=== PATIENT | female | born 1975 | race Two or more races ===

== ENCOUNTER 2016-09-03 17:51 | Emergency (ER) | payer SELFPAY ==
[~2016-09-03] VITALS: Ht 167.6 cm; Wt 127.0 kg
[2016-09-03] MEDS ORDERED: HYDROCODONE/APAP 5/325MG TABLET. PO ONE (18:30)
[2016-09-03 19:19] LABS: NEG OBC UR NEG; POS OBC UR POS
[2016-09-03 19:20] LABS: BILIRUBIN,URINE NEGATIVE (NEG); GLUCOSE,URINE NEGATIVE (NEG); NITRITE,URINE NEGATIVE (NEG); PH,URINE 7.5; PROTEIN,URINE NEGATIVE (NEG-TRACE)
[2016-09-03 19:36] LABS: BACTERIA,URINE FEW /HPF (0-FEW); RBC,URINE 0 /HPF (0-2); SQUAMOUS EPITHELIAL CELL,UR OCC /LPF; WBC,URINE OCC /HPF (0-4)
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
[2016-09-03 20:25] VITALS: BP 105/54
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
[2016-09-03] MEDS ORDERED: HYDR-971 PO (20:39)
--- NOTE | 2016-09-04 07:46 | RAD ---
Indication: Abdominal pain. Time of exam 1901 hours. Comparison is made with prior chest from 06/11/2011. FINDINGS: The heart size is normal. The lungs are clear. No pleural effusion or pneumothorax is identified. The pulmonary vascularity is normal. IMPRESSION: No acute abnormality detected.
== END 2016-09-03 20:48 | disposition home or self-care (01) ==
LOC: ER 17:51
DX: R10.32 Left lower quadrant pain (principal); R10.31 Right lower quadrant pain; R10.13 Epigastric pain; F41.9 Anxiety disorder, unspecified; F32.9 Major depressive disorder, single episode, unspecified; E78.00 Pure hypercholesterolemia, unspecified; E66.9 Obesity, unspecified; Z68.42 Body mass index [BMI] 45.0-49.9, adult; Z98.890 Other specified postprocedural states; Z87.442 Personal history of urinary calculi
CPT/HCPCS: 71010; 74176; 81001; 81025; 99285-25

== ENCOUNTER 2017-09-17 13:08 | Emergency (ER) | payer SELFPAY ==
[2017-09-17] MEDS: IV NORMAL SALINE 1000ML BAG 1,000 ML IV ×4 (14:29→16:26)
[2017-09-17] MEDS: ONDANSETRON PF 4 MG/2 ML VIAL. IV ×2 (14:30)
[2017-09-17 14:41] LABS: ADD MAN DIFF? NO
[2017-09-17 14:43] LABS: BASO # 0.1 x10^3/uL (0.0-0.2); BASO % 1 % (0-3); EOS # 0.2 x10^3/uL (0.0-0.7); EOS % 2 % (0-3); HEMATOCRIT 43.9 % (36.0-47.0); HEMOGLOBIN 14.7 g/dL (12.0-15.5); LYMPH # 1.6 x10^3/uL (1.0-4.8); LYMPH % 20 % (24-48); MEAN CORPUSCULAR HEMOGLOBIN 29 pg (25-35); MEAN CORPUSCULAR HGB CONC 34 g/dL (31-37); MEAN CORPUSCULAR VOLUME 86 fL (79-100); MONO # 0.4 x10^3/uL (0.0-1.1); MONO % 5 % (0-9); NEUT # 5.8 x10^3uL (1.8-7.7); NEUT % 72 % (31-73); PLATELET COUNT 290 x10^3/uL (140-400); RED BLOOD COUNT 5.11 x10^6/uL (3.50-5.40); RED CELL DISTRIBUTION WIDTH 13.9 % (11.5-14.5); WHITE BLOOD COUNT 8.2 x10^3/uL (4.0-11.0)
[2017-09-17 14:48] LABS: BILIRUBIN,URINE NEGATIVE (NEG); CLARITY,URINE CLOUDY; COLOR,URINE YELLOW; GLUCOSE,URINE NEGATIVE (NEG); NITRITE,URINE NEGATIVE (NEG); PROTEIN,URINE NEGATIVE (NEG-TRACE)
[2017-09-17 14:54] LABS: ANION GAP 8 (6-14); BLOOD UREA NITROGEN 13 mg/dL (7-20); BUN/CREATININE RATIO 19 (6-20); CARBON DIOXIDE 29 mmol/L (21-32); CHLORIDE 102 mmol/L (98-107); CREATININE 0.7 mg/dL (0.6-1.0); GFR 91.3; GLUCOSE 99 mg/dL (70-99); POTASSIUM 3.9 mmol/L (3.5-5.1); SODIUM 139 mmol/L (136-145)
[2017-09-17 15:00] LABS: ALBUMIN/GLOBULIN RATIO 0.9 (1.0-1.7); ALK PHOS 104 U/L (46-116); ALT (SGPT) 35 U/L (14-59); AST (SGOT) 31 U/L (15-37); BACTERIA,URINE MANY /HPF (0-FEW); LIPASE 74 U/L (73-393); RBC,URINE OCC /HPF (0-2); SQUAMOUS EPITHELIAL CELL,UR MANY /LPF; TOTAL BILIRUBIN 0.5 mg/dL (0.2-1.0); TOTAL PROTEIN 8.3 g/dL (6.4-8.2)
[2017-09-17 15:40] LABS: NEG OBC UR NEG; POS OBC UR POS; U PREG PATIENT NEGATIVE (NEG)
== END 2017-09-17 17:05 | disposition home or self-care (01) ==
LOC: ER 13:08
DX: R11.2 Nausea with vomiting, unspecified (principal); R42 Dizziness and giddiness; R03.0 Elevated blood-pressure reading, without diagnosis of hypertension; F41.9 Anxiety disorder, unspecified; F32.9 Major depressive disorder, single episode, unspecified; E78.00 Pure hypercholesterolemia, unspecified; E66.9 Obesity, unspecified; Z87.442 Personal history of urinary calculi; Z68.42 Body mass index [BMI] 45.0-49.9, adult
CPT/HCPCS: 36415; 80053; 81001; 81025; 83690; 85025; 93005; 96361; 96374; 99285-25; J2405; J7030

== ENCOUNTER 2017-11-04 12:26 | Emergency (ER) | payer SELFPAY ==
[2017-11-04 12:49] LABS: URINE HCG POC HCG NEGATIVE (Negative)
[2017-11-04 13:20] LABS: AMPHETAMINE/METHAMPHETAMINE NEG (NEG); BARBITURATES NEG (NEG); BENZODIAZEPINES NEG (NEG); CANNABINOIDS NEG (NEG); COCAINE NEG (NEG); ETHANOL, URINE NEG (NEG); METHADONE NEG (NEG); OPIATES NEG (NEG); PHENCYCLIDINE NEG (NEG)
[2017-11-04 13:21] LABS: BILIRUBIN,URINE NEGATIVE (NEG); CLARITY,URINE CLEAR; COLOR,URINE YELLOW; GLUCOSE,URINE NEGATIVE (NEG); NITRITE,URINE NEGATIVE (NEG); PH,URINE 5.5; PROTEIN,URINE NEGATIVE (NEG-TRACE); UROBILINOGEN,URINE 0.2 mg/dL (0.2 mg/dL)
[2017-11-04] MEDS: IV NORMAL SALINE 1000ML BAG 1,000 ML IV (13:28)
[2017-11-04 13:34] LABS: ADD MAN DIFF? NO
[2017-11-04 13:39] LABS: BASO # 0.1 x10^3/uL (0.0-0.2); BASO % 1 % (0-3); EOS # 0.2 x10^3/uL (0.0-0.7); EOS % 2 % (0-3); HEMATOCRIT 41.8 % (36.0-47.0); HEMOGLOBIN 13.9 g/dL (12.0-15.5); LYMPH # 2.5 x10^3/uL (1.0-4.8); LYMPH % 30 % (24-48); MEAN CORPUSCULAR HEMOGLOBIN 29 pg (25-35); MEAN CORPUSCULAR HGB CONC 33 g/dL (31-37); MEAN CORPUSCULAR VOLUME 86 fL (79-100); MONO # 0.5 x10^3/uL (0.0-1.1); MONO % 6 % (0-9); NEUT # 5.2 x10^3uL (1.8-7.7); NEUT % 61 % (31-73); PLATELET COUNT 266 x10^3/uL (140-400); RED BLOOD COUNT 4.86 x10^6/uL (3.50-5.40); WHITE BLOOD COUNT 8.5 x10^3/uL (4.0-11.0)
[2017-11-04 13:46] LABS: BACTERIA,URINE MANY /HPF (0-FEW); RBC,URINE 0 /HPF (0-2); SQUAMOUS EPITHELIAL CELL,UR MOD /LPF; WBC,URINE 0 /HPF (0-4)
[2017-11-04 13:48] LABS: INR 1.1 (0.8-1.1); PROTHROMBIN TIME PATIENT 13.5 SEC (11.7-14.0)
[2017-11-04 13:52] LABS: ANION GAP 8 (6-14); BLOOD UREA NITROGEN 15 mg/dL (7-20); CALCIUM 9.2 mg/dL (8.5-10.1); CARBON DIOXIDE 28 mmol/L (21-32); CHLORIDE 105 mmol/L (98-107); CREATININE 0.7 mg/dL (0.6-1.0); GFR 91.3; GLUCOSE 85 mg/dL (70-99); POTASSIUM 4.1 mmol/L (3.5-5.1); SODIUM 141 mmol/L (136-145)
[2017-11-04 13:58] LABS: ALBUMIN 3.5 g/dL (3.4-5.0); ALK PHOS 105 U/L (46-116); ALT (SGPT) 29 U/L (14-59); AST (SGOT) 23 U/L (15-37); DIRECT BILIRUBIN < 0.1 mg/dL (0.0-0.2); LIPASE 83 U/L (73-393); MAGNESIUM 1.9 mg/dL (1.8-2.4); TOTAL BILIRUBIN 0.4 mg/dL (0.2-1.0); TOTAL PROTEIN 7.7 g/dL (6.4-8.2)
[2017-11-04 13:59] LABS: TROPONINI < 0.017 ng/mL (0.000-0.055)
[2017-11-04 14:05] LABS: THYROID STIM HORMONE (TSH) 3.519 uIU/mL (0.358-3.74)
[2017-11-04 14:07] LABS: NT-PRO BNP 28 pg/mL (0-124)
[2017-11-04 14:07] LABS: CKMB INDEX 1.7 % (0-4); CKMB MASS 1.3 ng/mL (0.0-3.6); CREATINE KINASE 75 U/L (26-192)
[2017-11-04] MEDS: MECLIZINE HCL 12.5 MG TABLET. PO (14:53)
== END 2017-11-04 14:50 | disposition home or self-care (01) ==
LOC: ER 12:26
DX: R42 Dizziness and giddiness (principal); R11.0 Nausea; H53.8 Other visual disturbances; F41.9 Anxiety disorder, unspecified; F32.9 Major depressive disorder, single episode, unspecified; E78.00 Pure hypercholesterolemia, unspecified; E66.9 Obesity, unspecified; Z68.43 Body mass index [BMI] 50.0-59.9, adult
CPT/HCPCS: 36415; 70450; 74022; 80048; 80076; 80307; 81001; 81025; 82553; 83690; 83735; 83880; 84443; 84484; 85025; 85610; 93005; 96360; 99285-25; J7030; J8597

== ENCOUNTER 2017-12-23 21:12 | Emergency (ER) | payer OTHER ==
[2017-12-23 21:45] LABS: URINE HCG POC HCG NEGATIVE (Negative)
[2017-12-23] MEDS: MECLIZINE HCL 12.5 MG TABLET. PO (22:02)
== END 2017-12-23 22:22 | disposition home or self-care (01) ==
LOC: ER 21:12
DX: R42 Dizziness and giddiness (principal); R11.2 Nausea with vomiting, unspecified; E78.00 Pure hypercholesterolemia, unspecified; F41.9 Anxiety disorder, unspecified; F32.9 Major depressive disorder, single episode, unspecified; E66.9 Obesity, unspecified; Z68.42 Body mass index [BMI] 45.0-49.9, adult
CPT/HCPCS: 81025; 93005; 99283; J8597

== ENCOUNTER 2017-12-25 13:12 | Emergency (ER) | payer OTHER ==
[2017-12-25 13:47] LABS: URINE HCG POC HCG NEGATIVE (Negative)
[2017-12-25 14:09] LABS: ADD MAN DIFF? NO
[2017-12-25 14:11] LABS: BASO % 1 % (0-3); BILIRUBIN,URINE NEGATIVE (NEG); CLARITY,URINE CLEAR; COLOR,URINE AMBER; EOS # 0.2 x10^3/uL (0.0-0.7); EOS % 2 % (0-3); GLUCOSE,URINE NEGATIVE (NEG); HEMATOCRIT 40.3 % (36.0-47.0); HEMOGLOBIN 13.6 g/dL (12.0-15.5); LYMPH # 1.4 x10^3/uL (1.0-4.8); LYMPH % 20 % (24-48); MEAN CORPUSCULAR HEMOGLOBIN 29 pg (25-35); MEAN CORPUSCULAR HGB CONC 34 g/dL (31-37); MEAN CORPUSCULAR VOLUME 85 fL (79-100); MONO # 0.8 x10^3/uL (0.0-1.1); MONO % 11 % (0-9); NEUT # 4.7 x10^3uL (1.8-7.7); NEUT % 67 % (31-73); NITRITE,URINE NEGATIVE (NEG); PLATELET COUNT 268 x10^3/uL (140-400); PROTEIN,URINE NEGATIVE (NEG-TRACE); RED BLOOD COUNT 4.74 x10^6/uL (3.50-5.40); RED CELL DISTRIBUTION WIDTH 13.6 % (11.5-14.5); WHITE BLOOD COUNT 7.1 x10^3/uL (4.0-11.0)
[2017-12-25 14:17] LABS: ANION GAP 7 (6-14); BLOOD UREA NITROGEN 12 mg/dL (7-20); BUN/CREATININE RATIO 15 (6-20); CALCIUM 8.9 mg/dL (8.5-10.1); CARBON DIOXIDE 26 mmol/L (21-32); CHLORIDE 106 mmol/L (98-107); CREATININE 0.8 mg/dL (0.6-1.0); GFR 77.9; GLUCOSE 97 mg/dL (70-99); POTASSIUM 3.7 mmol/L (3.5-5.1); SODIUM 139 mmol/L (136-145)
[2017-12-25] MEDS: IV NORMAL SALINE 1000ML BAG 1,000 ML IV (14:17)
[2017-12-25] MEDS: KETOROLAC 30 MG/ML INJ. IV (14:18)
[2017-12-25 14:21] LABS: BACTERIA,URINE MODERATE /HPF (0-FEW); RBC,URINE 0 /HPF (0-2); SQUAMOUS EPITHELIAL CELL,UR MANY /LPF; WBC,URINE 0 /HPF (0-4)
[2017-12-25 14:23] LABS: ALBUMIN 3.4 g/dL (3.4-5.0); ALBUMIN/GLOBULIN RATIO 0.8 (1.0-1.7); ALK PHOS 102 U/L (46-116); ALT (SGPT) 39 U/L (14-59); AST (SGOT) 43 U/L (15-37); TOTAL BILIRUBIN 0.4 mg/dL (0.2-1.0); TOTAL PROTEIN 7.6 g/dL (6.4-8.2)
== END 2017-12-25 15:45 | disposition home or self-care (01) ==
LOC: ER 13:12
DX: K52.9 Noninfective gastroenteritis and colitis, unspecified (principal); E78.00 Pure hypercholesterolemia, unspecified; E66.01 Morbid (severe) obesity due to excess calories; Z90.49 Acquired absence of other specified parts of digestive tract; Z98.890 Other specified postprocedural states; Z68.42 Body mass index [BMI] 45.0-49.9, adult
CPT/HCPCS: 36415; 74176; 80053; 81001; 81025; 85025; 87086; 96361; 96374; 99285-25; J1885; J7030

== ENCOUNTER 2019-09-19 06:53 | Emergency (ER) | payer SELFPAY ==
[~2019-09-19] VITALS: Ht 162.6 cm; Wt 136.4 kg
[~2019-09-19 06:53] MED LIST: CIPR500T94 PO; HYDR-3164 PO; LORA1TAB PO; MECL-75 PO; ONDA4TAB10 SL; TRAM-48 PO
[2019-09-19] MEDS ORDERED: IV NORMAL SALINE 1000ML BAG 1,000 ML IV ONE (07:00)
--- NOTE | 2019-09-19 07:00 | PHYS DOC ---
Past Medical History Past Medical History: Anxiety, Depression, High Cholesterol, Other Additional Past Medical Histor: OBESE, vertigo Past Surgical History: , Other Additional Past Surgical Histo: kidney stone removal Smoking Status: Former Smoker Alcohol Use: None Drug Use: None Adult General Chief Complaint Chief Complaint: DIZZY/LIGHT HEADED [facility] HPI Patient is a 43 year old female who presents with complaint of nausea and vomiting and body aches. Her symptoms started Thursday when she vomited 5 times and they seem to be improving yesterday but this morning she woke and was having similar symptoms so she came here for further evaluation. No sick contacts. No medications taken prior to arrival. Symptoms seem to be mild to moderate Review of Systems Review of Systems All other ROS is negative unless otherwise stated in HPI Current Medications Current Medications Current Medications Medications (Trade) Dose Ordered Sig/Gisselle Start Time Stop Time Status Last Admin Dose Admin Lorazepam (Ativan Inj) 1 mg 1X ONCE 09/19/19 07:00 09/19/19 07:08 DC Meclizine HCl (Antivert) 25 mg 1X ONCE 09/19/19 07:15 09/19/19 07:16 DC 09/19/19 07:52 25 MG Ondansetron HCl (Zofran) 4 mg 1X ONCE 09/19/19 07:15 09/19/19 07:16 DC 09/19/19 07:51 4 MG Sodium Chloride 1,000 ml @ 1,000 mls/hr 1X ONCE 09/19/19 07:00 09/19/19 07:59 DC 09/19/19 07:51 1,000 MLS/HR Allergies Allergies Allergies Coded Allergies Type Severity Reaction Last Updated Verified No Known Drug Allergies 03/19/15 No Physical Exam Physical Exam See above Constitutional: Well developed, well nourished, no acute distress, non-toxic appearance. [] HENT: Normocephalic, atraumatic, bilateral external ears normal, oropharynx moist, no oral exudates, nose normal. [] Eyes: PERRLA, EOMI, conjunctiva normal, no discharge. [] Neck: Normal range of motion, no tenderness, supple, no stridor. [] Cardiovascular:Heart rate regular rhythm, no murmur [] Lungs & Thorax: Bilateral breath sounds clear to auscultation [] Abdomen: Bowel sounds normal, soft, no tenderness, no masses, no pulsatile masses. [] Skin: Warm, dry, no erythema, no rash. [] Back: No tenderness, no CVA tenderness. [] Extremities: No tenderness, no cyanosis, no clubbing, ROM intact, no edema. [] Neurologic: Alert and oriented X 3, normal motor function, normal sensory function, no focal deficits noted. [] Psychologic: Affect normal, judgement normal, mood normal. [] Current Patient Data Vital Signs Vital Signs Date Time Temp Pulse Resp B/P (MAP) Pulse Ox O2 Delivery O2 Flow Rate FiO2 09/19/19 07:00 97.9 73 17 125/60 (81) 97 Room Air 97.9 Lab Values Laboratory Tests Test 09/19/19 07:04 09/19/19 07:13 09/19/19 07:25 09/19/19 07:30 Urine Collection Type Void Urine Color Yellow Urine Clarity Clear Urine pH 6.0 Urine Specific [place] 1.025 Urine Protein Negative mg/dL (NEG-TRACE) Urine Glucose (UA) Negative mg/dL (NEG) Urine Ketones (Stick) Negative mg/dL (NEG) Urine Blood Negative (NEG) Urine Nitrite Negative (NEG) Urine Bilirubin Negative (NEG) Urine Urobilinogen Dipstick 1.0 mg/dL (0.2 mg/dL) Urine Leukocyte Esterase Negative (NEG) Urine RBC 0 /HPF (0-2) Urine WBC 5-10 /HPF (0-4) Urine Squamous Epithelial Cells Many /LPF Urine Bacteria Few /HPF (0-FEW) Urine Mucus Slight /LPF POC Urine HCG, Qualitative Hcg negative (Negative) White Blood Count 9.1 x10^3/uL (4.0-11.0) Red Blood Count 4.84 x10^6/uL (3.50-5.40) Hemoglobin 13.7 g/dL (12.0-15.5) Hematocrit 40.9 % (36.0-47.0) Mean Corpuscular Volume 85 fL (79-100) Mean Corpuscular Hemoglobin 28 pg (25-35) Mean Corpuscular Hemoglobin Concent 34 g/dL (31-37) Red Cell Distribution Width 14.1 % (11.5-14.5) Platelet Count 264 x10^3/uL (140-400) Neutrophils (%) (Auto) 74 % (31-73) H Lymphocytes (%) (Auto) 14 % (24-48) L Monocytes (%) (Auto) 9 % (0-9) Eosinophils (%) (Auto) 2 % (0-3) Basophils (%) (Auto) 1 % (0-3) Neutrophils # (Auto) 6.8 x10^3/uL (1.8-7.7) Lymphocytes # (Auto) 1.3 x10^3/uL (1.0-4.8) Monocytes # (Auto) 0.8 x10^3/uL (0.0-1.1) Eosinophils # (Auto) 0.2 x10^3/uL (0.0-0.7) Basophils # (Auto) 0.1 x10^3/uL (0.0-0.2) Sodium Level 141 mmol/L (136-145) Potassium Level 3.5 mmol/L (3.5-5.1) Chloride Level 105 mmol/L (98-107) Carbon Dioxide Level 24 mmol/L (21-32) Anion Gap 12 (6-14) Blood Urea Nitrogen 16 mg/dL (7-20) Creatinine 0.6 mg/dL (0.6-1.0) Estimated GFR (Cockcroft-Gault) 108.1 Glucose Level 105 mg/dL (70-99) H Calcium Level 8.5 mg/dL (8.5-10.1) Influenza Type A Antigen Negative (NEGATIVE) Influenza Type B Antigen Negative (NEGATIVE) Laboratory Tests 09/19/19 07:25 Laboratory Tests 09/19/19 07:25 EKG EKG [] Radiology/Procedures Radiology/Procedures [] Course & Med Decision Making Course & Med Decision Making Pertinent Labs and Imaging studies reviewed. (See chart for details) Patient seen for nausea and vomiting. Which is basic labs given IV fluids, meclizine and Zofran and check for influenza. Differential diagnosis includes viral syndrome, influenza, vertigo which the patient has a history of. 0828: Patient's laboratory analysis is completed and is rather unremarkable. She is feeling somewhat better after IV fluids and medication. Given her symptoms and suspect she likely has viral gastroenteritis and will discharge her home with a prescription for Zofran and she is to follow-up with her doctor or return to the ER for worsening symptoms. Patient voices understanding. Dragon Disclaimer Dragon Disclaimer This electronic medical record was generated, in whole or in part, using a voice recognition dictation system. Departure Departure Impression: Primary Impression: Viral gastroenteritis Disposition: 01 HOME, SELF-CARE Condition: IMPROVED Referrals: WAYLON KIM MD (PCP) Follow up as needed. Patient Instructions: Viral Gastroenteritis Scripts Ondansetron Hcl (ZOFRAN) 4 Mg Tablet 1 TAB PO PRN Q6-8HRS for nausea, #20 TAB Prov: ROYAL BERMUDEZ DO 09/19/19 ROYAL BERMUDEZ DO Sep 19, 2019 07:00
[2019-09-19] MEDS ORDERED: ONDANSETRON PF 4 MG/2 ML VIAL. IVP ONE (07:15)
[2019-09-19] MEDS ORDERED: MECLIZINE HCL 12.5 MG TABLET. PO ONE (07:15)
[2019-09-19 07:25] LABS: BILIRUBIN,URINE NEGATIVE (NEG); CLARITY,URINE CLEAR; COLOR,URINE YELLOW; NITRITE,URINE NEGATIVE (NEG); PROTEIN,URINE NEGATIVE (NEG-TRACE)
[2019-09-19 07:34] LABS: BACTERIA,URINE FEW /HPF (0-FEW); RBC,URINE 0 /HPF (0-2); SQUAMOUS EPITHELIAL CELL,UR MANY /LPF
[2019-09-19 07:39] LABS: BASO # 0.1 x10^3/uL (0.0-0.2); BASO % 1 % (0-3); EOS # 0.2 x10^3/uL (0.0-0.7); EOS % 2 % (0-3); HEMATOCRIT 40.9 % (36.0-47.0); HEMOGLOBIN 13.7 g/dL (12.0-15.5); LYMPH # 1.3 x10^3/uL (1.0-4.8); LYMPH % 14 % (24-48); MEAN CORPUSCULAR HEMOGLOBIN 28 pg (25-35); MEAN CORPUSCULAR HGB CONC 34 g/dL (31-37); MEAN CORPUSCULAR VOLUME 85 fL (79-100); MONO # 0.8 x10^3/uL (0.0-1.1); MONO % 9 % (0-9); NEUT # 6.8 x10^3/uL (1.8-7.7); NEUT % 74 % (31-73); PLATELET COUNT 264 x10^3/uL (140-400); RED BLOOD COUNT 4.84 x10^6/uL (3.50-5.40); RED CELL DISTRIBUTION WIDTH 14.1 % (11.5-14.5); WHITE BLOOD COUNT 9.1 x10^3/uL (4.0-11.0)
[2019-09-19 07:47] LABS: CALCIUM 8.5 mg/dL (8.5-10.1); CREATININE 0.6 mg/dL (0.6-1.0); GFR 108.1; POTASSIUM 3.5 mmol/L (3.5-5.1)
[2019-09-19 07:59] LABS: INFLUENZA A PATIENT NEGATIVE (NEGATIVE); INFLUENZA B PATIENT NEGATIVE (NEGATIVE)
[2019-09-19 08:07] VITALS: BP 112/52
[2019-09-19] MEDS ORDERED: ONDA4TAB7 PO (08:30)
== END 2019-09-19 09:00 | disposition home or self-care (01) ==
LOC: ER 06:53
DX: A08.4 Viral intestinal infection, unspecified (principal); R11.2 Nausea with vomiting, unspecified; R52 Pain, unspecified; F41.9 Anxiety disorder, unspecified; F32.9 Major depressive disorder, single episode, unspecified; E78.00 Pure hypercholesterolemia, unspecified; E66.9 Obesity, unspecified; F17.200 Nicotine dependence, unspecified, uncomplicated; Z68.43 Body mass index [BMI] 50.0-59.9, adult; Z87.442 Personal history of urinary calculi; Z98.890 Other specified postprocedural states
CPT/HCPCS: 36415; 80048; 81001; 81025; 85025; 87804; 96361; 96374; 99283; J2405; J7030; J8597

== ENCOUNTER 2020-01-23 15:30 | Emergency (ER) | payer SELFPAY ==
[~2020-01-23] VITALS: Ht 160 cm; Wt 136.3 kg
[~2020-01-23 15:30] MED LIST changes: +ONDA4TAB7 PO
[2020-01-23 15:42] VITALS: BP 139/75
[2020-01-23] MEDS ORDERED: DEXAMETHASONE 4 MG TABLET PO ONE (16:00)
[2020-01-23] MEDS ORDERED: HYDROcodone/APAP 5/325MG 1 TAB TABLET PO ONE (16:00)
--- NOTE | 2020-01-23 16:22 | RAD ---
AP, oblique, and lateral views of the left knee were obtained. Indication: Pain and swelling Comparison: none. Findings: No fracture. Severe degenerative osteoarthritic changes with near complete obliteration of the joint space medially. Tricompartmental osteophyte formation is identified. Definite joint effusion is not identified. Electronically signed by: Serge Jones MD (01/23/2020 4:19 PM) [id number]
--- NOTE | 2020-01-23 16:36 | RAD ---
Left lower extremity venous duplex study Clinical History: Left Lower extremity pain Technique: Using a combination of real time ultrasound imaging and color-flow and pulse Doppler imaging techniques, including spectral analysis, graded compression and augmentation, duplex evaluation of the deep venous system of the left lower extremity was performed. Multiple images were obtained. Findings: There is no sonographic evidence of deep venous thrombosis involving the visualized deep venous structures of the left lower extremity Impression: No evidence of deep venous thrombosis involving the left lower extremity Electronically signed by: Laz Hubbard MD (01/23/2020 4:33 PM) [id number]
--- NOTE | 2020-01-23 16:48 | PHYS DOC ---
Past Medical History Past Medical History: Anxiety, Depression, High Cholesterol, Kidney Stone, Other Additional Past Medical Histor: OBESE, vertigo Past Surgical History: , Other Additional Past Surgical Histo: kidney stone removal Smoking Status: Former Smoker Alcohol Use: None Drug Use: None General Adult EDM: Chief Complaint: LOWER EXT PAIN HPI: HPI: Patient is a 44 year old female who presents with report of left knee pain that radiates down to her calf. Reports she await woke this morning with the pain. Denies known trauma. Reports some slight increased swelling. Denies numbness or tingling. Denies fever or chills. Denies back pain. Denies loss of bowel or bladder. Review of Systems: Review of Systems: Constitutional: Denies fever or chills Eyes: Denies redness or eye pain HENT: Denies nasal congestion or sore throat Respiratory: Denies cough or shortness of breath Cardiovascular: Denies chest pain or palpitations GI: Denies abdominal pain, nausea, or vomiting : Denies dysuria or hematuria Musculoskeletal: Denies back pain; reports left knee pain radiating down to calf Integument: Denies rash or skin lesions Neurologic: Denies headache, focal weakness or sensory changes Complete systems were reviewed and found to be within normal limits, except as documented in this note. Current Medications: Current Medications Medications (Trade) Dose Ordered Sig/Gisselle Start Time Stop Time Status Last Admin Dose Admin Acetaminophen/ Hydrocodone Bitart (Lortab 5/325) 1 tab 1X ONCE 01/23/20 16:00 01/23/20 16:01 DC 01/23/20 16:21 1 TAB Dexamethasone (Decadron) 10 mg 1X ONCE 01/23/20 16:00 01/23/20 16:01 DC 01/23/20 16:22 10 MG Allergies: Allergies: Allergies Coded Allergies Type Severity Reaction Last Updated Verified No Known Drug Allergies 03/19/15 No Physical Exam: PE: Constitutional: Well developed, obese, no acute distress, non-toxic appearance HENT: Normocephalic, atraumatic Eyes: Conjunctiva normal, no discharge Neck: Normal range of motion, no tenderness, supple Cardiovascular: Left PT and DP +2, cap refill less than 2 seconds Lungs & Thorax: No respiratory distress, equal chest rise and fall Abdomen: Soft, no tenderness Skin: Warm, dry, no erythema, no rash Extremities: Left knee tenderness on palpation, joint stable, ROM intact, 1+ edema to BLE Neurologic: Alert and oriented X 3, no focal deficits noted Psychologic: Affect normal, judgment normal Current Patient Data: Vital Signs: Vital Signs Date Time Temp Pulse Resp B/P (MAP) Pulse Ox O2 Delivery O2 Flow Rate FiO2 01/23/20 16:21 20 01/23/20 15:42 98.2 92 139/75 (96) 97 Room Air 98.2 EKG: EKG: [] Radiology/Procedures: Radiology/Procedures: PROCEDURE: VENOUS LOWER EXTREMITY LEFT Left lower extremity venous duplex study Clinical History: Left Lower extremity pain Technique: Using a combination of real time ultrasound imaging and color-flow and pulse Doppler imaging techniques, including spectral analysis, graded compression and augmentation, duplex evaluation of the deep venous system of the left lower extremity was performed. Multiple images were obtained. Findings: There is no sonographic evidence of deep venous thrombosis involving the visualized deep venous structures of the left lower extremity Impression: No evidence of deep venous thrombosis involving the left lower extremity Electronically signed by: Laz Hubbard MD (01/23/2020 4:33 PM) [id number] PROCEDURE: KNEE LEFT 3V AP, oblique, and lateral views of the left knee were obtained. Indication: Pain and swelling Comparison: none. Findings: No fracture. Severe degenerative osteoarthritic changes with near complete obliteration of the joint space medially. Tricompartmental osteophyte formation is identified. Definite joint effusion is not identified. Electronically signed by: Serge Jones MD (01/23/2020 4:19 PM) [id number] Course & Med Decision Making: Course & Med Decision Making Pertinent Imaging studies reviewed. (See chart for details) Patient presents with left knee pain. No trauma reported. Limb neurovascularly intact. Venous Doppler negative for acute DVT. XR knee with findings consistent for degenerative changes/osteoarthritis. LORA bandage provided. Pain addressed. Patient stable for discharge with outpatient follow-up with PCP/orthopedics. Orthopedic referral provided. Discussed findings and plan with patient and family, who acknowledge understanding and agreement. Lilian Disclaimer: Lilian Disclaimer: This electronic medical record was generated, in whole or in part, using a voice recognition dictation system. Splinting Splinting : Location: left knee Pre-Made Type: LORA bandage Pre-Proc Neuro Vasc Exam: normal Post-Proc Neuro Vasc Exam: normal, unchanged from pre-exam Departure Departure Impression: Primary Impression: Knee pain, left Qualified Codes: M25.562 - Pain in left knee Additional Impression: Osteoarthritis Qualified Codes: M17.12 - Unilateral primary osteoarthritis, left knee Disposition: HOME, SELF-CARE Condition: STABLE Referrals: WAYLON KIM MD (PCP) JUSTINA WEISS MD Patient Instructions: Knee Pain, [id number], Knee Wraps (Elastic Bandage) and RICE, Osteoarthritis Scripts Hydrocodone/Apap 5-325 (NORCO 5-325 TABLET) 1 Each Tablet 0.5-1 TAB PO PRN Q6HRS PRN for PAIN, #10 TAB 0 Refills Prov: ROXANA CHARLTON DO 01/23/20 Naproxen (NAPROXEN) 375 Mg Tablet 375 MG PO TID PRN PRN for PAIN, #30 TAB Prov: ROXANA CHARLTON DO 01/23/20 Justicifation of Admission Dx: Justifications for Admission: Justification of Admission Dx: N/A ROXANA CHARLTON DO Jan 23, 2020 16:48
[2020-01-23] MEDS ORDERED: NAPR-695 PO (16:58)
[2020-01-23] MEDS ORDERED: HYDR-3164 PO (16:58)
== END 2020-01-23 17:09 | disposition home or self-care (01) ==
LOC: ER 15:30
DX: M17.12 Unilateral primary osteoarthritis, left knee (principal); M25.562 Pain in left knee; R60.0 Localized edema; F41.9 Anxiety disorder, unspecified; F32.9 Major depressive disorder, single episode, unspecified; E78.00 Pure hypercholesterolemia, unspecified; E66.9 Obesity, unspecified; Z68.43 Body mass index [BMI] 50.0-59.9, adult; Z87.442 Personal history of urinary calculi; Z98.890 Other specified postprocedural states; Z87.891 Personal history of nicotine dependence
CPT/HCPCS: 73562; 93971; 99284; J8540

== ENCOUNTER 2020-03-07 14:56 | Emergency (ER) | payer SELFPAY ==
[~2020-03-07] VITALS: Ht 167.6 cm; Wt 131.0 kg
[~2020-03-07 14:56] MED LIST changes: +NAPR-695 PO
[2020-03-07 15:56] VITALS: BP 149/82
[2020-03-07] MEDS ORDERED: diphenhydrAMINE 50 MG/ML VIAL IM ONE (16:15)
[2020-03-07] MEDS ORDERED: predniSONE 20 MG TABLET PO ONE (16:15)
[2020-03-07] MEDS ORDERED: HYDR50CA PO (16:22)
[2020-03-07] MEDS ORDERED: PRED20TA PO (16:22)
--- NOTE | 2020-03-07 16:23 | PHYS DOC ---
Past Medical History Past Medical History: Anxiety, Depression, High Cholesterol, Kidney Stone, Other Additional Past Medical Histor: OBESE, vertigo Past Surgical History: , Other Additional Past Surgical Histo: kidney stone removal Smoking Status: Former Smoker Alcohol Use: None Drug Use: None General Adult EDM: Chief Complaint: SKIN RASH/ABSCESS HPI: HPI: Patient is a 44 year old female who presents with chief complaint of 4 to 5-day history of diffuse rash. Rash described as itchy. Patient denies any new soaps or detergents or possible etiologies. Patient has no respiratory complaints. No fevers no cough no vomiting no diarrhea. No sick contacts at home Review of Systems: Review of Systems: Constitutional: Denies fever or chills. [] Eyes: Denies change in visual acuity. [] HENT: Denies nasal congestion or sore throat. [] Respiratory: Denies cough or shortness of breath. [] Cardiovascular: Denies chest pain or edema. [] GI: Denies abdominal pain, nausea, vomiting, bloody stools or diarrhea. [] : Denies dysuria. [] Musculoskeletal: Denies back pain or joint pain. [] Integument: Complains of diffuse rash Neurologic: Denies headache, focal weakness or sensory changes. [] Endocrine: Denies polyuria or polydipsia. [] Lymphatic: Denies swollen glands. [] Psychiatric: Denies depression or anxiety. [] Heart Score: Risk Factors: Risk Factors: DM, Current or recent (<one month) smoker, HTN, HLP, family his tory of CAD, obesity. Risk Scores: Score 0 - 3: 2.5% MACE over next 6 weeks - Discharge Home Score 4 - 6: 20.3% MACE over next 6 weeks - Admit for Clinical Observation Score 7 - 10: 72.7% MACE over next 6 weeks - Early Invasive Strategies Current Medications: Current Medications Medications (Trade) Dose Ordered Sig/Gisselle Start Time Stop Time Status Last Admin Dose Admin Diphenhydramine HCl (Benadryl) 50 mg 1X ONCE 03/07/20 16:15 03/07/20 16:16 DC 03/07/20 16:14 50 MG Prednisone (Prednisone) 60 mg 1X ONCE 03/07/20 16:15 03/07/20 16:16 DC 03/07/20 16:13 60 MG Allergies: Allergies: Allergies Coded Allergies Type Severity Reaction Last Updated Verified No Known Drug Allergies 03/19/15 No Physical Exam: PE: Constitutional: Well developed, well nourished, no acute distress, non-toxic appearance. HENT: No trismus, external ears normal Eyes: Conjunctiva clear, EOMI Neck: Normal range of motion, no tenderness, supple, no stridor. Cardiovascular: Regular rate/rhythm, peripheral pulse intact, METALLURGICAL LABORATORY ASSISTANT intact Lungs & Thorax: No respiratory distress Abdomen: No distension Skin: Diffuse: Diffuse rash especially on the torso and extremities consistent with contact dermatitis Back: Full ROM Extremities: Diffuse rash consistent with contact dermatitis, no edema Neurologic: Alert and oriented X 3, normal motor function, , no focal deficits noted. Psychologic: Affect normal, judgement normal, mood normal. Current Patient Data: Vital Signs: Vital Signs Date Time Temp Pulse Resp B/P (MAP) Pulse Ox O2 Delivery O2 Flow Rate FiO2 03/07/20 15:56 98.3 74 12 149/82 (104) 93 Room Air 98.3 EKG: EKG: [] Radiology/Procedures: Radiology/Procedures: [] Course & Med Decision Making: Course & Med Decision Making Pertinent Labs and Imaging studies reviewed. (See chart for details) [] Rash consistent with contact dermatitis. Patient stable. No airway involvement. Mijn AutoCoach Disclaimer: Mijn Auto[employer]ach Disclaimer: This electronic medical record was generated, in whole or in part, using a voice recognition dictation system. Departure Departure Impression: Primary Impression: Dermatitis Disposition: HOME, SELF-CARE Condition: STABLE Referrals: WAYLON KIM MD (PCP) 2-3 days Patient Instructions: Contact Dermatitis Additional Instructions: EMERGENCY DEPARTMENT GENERAL DISCHARGE INSTRUCTIONS THANK YOU for coming to [facility] Emergency Department (ED) today and trusting us with your care. We trust that you had a positive experience in our Emergency Department. If you wish to speak to the department Management you can contact the supervisor roving department at . YOUR FOLLOW UP INSTRUCTIONS ARE FOLLOWS: Do you have a private doctor? If you do not have a private doctor, please ask for a resource list of physicians or clinics that may be able to assist you with follow up care. The Emergency Physician has interpreted your x-rays. The X-ray specialist will also review them. If there is a change in the findings you will be notified in 48 hours when at all possible. A lab test or lab culture may have been done, your results will be reviewed and you will be notified if you need a change in treatment. ADDITIONAL INSTRUCTIONS AND INFORMATION Your care today has been supervised by a physician who is specially trained in emergency care. Many problems require more than one evaluation for a complete diagnosis and treatment. We recommend that you schedule your follow up appointment as recommended to ensure complete treatment of your illness or injury. If you are unable to obtain follow up care and continue to have a problem, or if your condition worsens we recommend that you return to the ED. We are not able to safely determine your condition over the phone nor are we able to give sound medical advice over the phone. For these safety reasons, if you call for medical advice we will ask you to come to the ED for further evaluation If you have any questions regarding these discharge instructions please call the ED at . SAFETY INFORMATION In the interest of safety, wellness, and injury prevention; we encourage you to wear your seatbelt, if you smoke; quit smoking, and we encourage your family to use protective helmet for bicycling and other sporting events that present an increased risk for head injury. IF YOUR SYMPTOMS WORSEN OR NEW SYMPTOMS DEVELOP, OR YOU HAVE CONCERNS ABOUT YOUR CONDITION; OR IF YOUR CONDITION WORSENS WHILE YOU ARE WAITING FOR YOUR FOLLOW UP APPOINTMENT; EITHER CONTACT YOUR PRIMARY CARE DOCTOR, THE PHYSICIAN WHOSE NAME AND NUMBER YOU WERE GIVEN, OR RETURN TO THE ED IMMEDIATELY. Scripts Hydroxyzine Pamoate (VISTARIL) 50 Mg Capsule 1 CAP PO TID PRN for ITCHING, #90 CAP Prov: PATSY FAM MD 03/07/20 Prednisone (PREDNISONE) 20 Mg Tablet 3 TAB PO DAILY, #15 TAB Prov: PATSY FAM MD 03/07/20 Justicifation of Admission Dx: Justifications for Admission: Justification of Admission Dx: N/A PATSY FAM MD Mar 07, 2020 16:23
== END 2020-03-07 16:50 | disposition home or self-care (01) ==
LOC: ER 14:56
DX: L25.9 Unspecified contact dermatitis, unspecified cause (principal); R21 Rash and other nonspecific skin eruption; F41.9 Anxiety disorder, unspecified; F32.9 Major depressive disorder, single episode, unspecified; E78.00 Pure hypercholesterolemia, unspecified; E66.9 Obesity, unspecified; Z68.42 Body mass index [BMI] 45.0-49.9, adult; Z87.442 Personal history of urinary calculi; Z87.891 Personal history of nicotine dependence; Z98.890 Other specified postprocedural states
CPT/HCPCS: 96372; 99283; J1200; J7512

== ENCOUNTER → 2020-12-14 | Outpatient (CLI) | payer OTHER ==
[2020-11-29 15:00] VITALS: BP 148/70
[~2020-12-14] MED LIST changes: +HYDR50CA PO; +METF500T16 PO; +PARO20TA3 PO; +PRED20TA PO; +SIMV20TA18 PO
--- NOTE | 2020-12-14 14:47 | RAD ---
US ABDOMEN COMPLETE Realtime grayscale images of the abdomen with color and pulsed doppler utilized as appropriate. History: ELEVATED LFT'S Comparison: CT 11/28/2020. Findings: The liver measures 24.8 cm craniocaudad and demonstrates increased echogenicity. No intrahepatic mario iary ductal dilatation or mass is seen. Cholecystectomy. The common bile duct is increased in diamet er and measures 0.8 cm. Portal Vein flow is hepatopetal. The pancreas is normal in appearance, although the tail is not well visualized. The aorta and IVC are normal diameter where visualized. The right kidney is normal in appearance, measuring 12.1 cm in length. The left kidney is normal in a ppearance, measuring 12.7 cm in length. No hydronephrosis or perinephric fluid are seen bilaterally. The spleen is enlarged, measuring 14.6 cm. Impression: 1. Hepatomegaly and hepatic steatosis. 2. Cholecystectomy. Enlarged common bile duct, probably due to postcholecystectomy state. 3. Splenomegaly. Electronically signed by: Sai Veloz MD (12/14/2020 2:45 PM) [facility]
== END ==
LOC: US 07:13
PROVIDERS: ATTEND Family Medicine
DX: R16.2 Hepatomegaly with splenomegaly, not elsewhere classified (principal); K76.0 Fatty (change of) liver, not elsewhere classified; Z90.49 Acquired absence of other specified parts of digestive tract
CPT/HCPCS: 76700

== ENCOUNTER 2021-05-24 14:16 | Emergency (ER) | payer SELFPAY ==
[~2021-05-24] VITALS: Ht 162.6 cm; Wt 120.0 kg
[2021-05-24 14:48] VITALS: BP 169/86
--- NOTE | 2021-05-24 15:13 | RAD ---
AP chest. HISTORY: Cough, Covid positive AP view was taken of the chest. Heart is normal in size. Patient's taken a poor inspiration. There is minimal atelectasis or infiltrate at the left costophrenic angle. No other infiltrates are noted. Th ere is no effusion. IMPRESSION: 1. Poor inspiration with minimal left base atelectasis or infiltrate. Electronically signed by: King Moctezuma MD (05/24/2021 3:11 PM) [facility]
[2021-05-24] MEDS ORDERED: AZIT250T6 PO (15:44)
[2021-05-24] MEDS ORDERED: ALBU2.5V8 INH (15:44)
--- NOTE | 2021-05-24 15:45 | PHYS DOC ---
Past Medical History Past Medical History: Anxiety, Depression, Diabetes-Type II, High Cholesterol, Kidney Stone, Other Additional Past Medical Histor: OBESE, vertigo (BLAKE,MARINA M FURNITURE MECHANIC) Past Surgical History: , Other Additional Past Surgical Histo: kidney stone removal ([facility],MARINA M FURNITURE MECHANIC) Smoking Status: Current Every Day Smoker Alcohol Use: None Drug Use: None ([facility],MARINA M FURNITURE MECHANIC) General Adult EDM: Chief Complaint: COUGH HPI: HPI: Patient is a 45 year old female who presents with history of testing positive for Covid today. Her symptoms started Thursday. Her only symptom is a cough. Patient has history of anxiety, depression diabetes, depression, kidney stone, kidney stone removal, high cholesterol, obesity, , smoking. Patient states she only came in today because she was scared. She denies shortness of breath, chest pain, abdominal pain, nausea, vomiting, diarrhea, fever, headache, dizziness, numbness or tingling, focal weakness. (BLAKE,MARINA M ) Review of Systems: Review of Systems: Constitutional: Denies fever or chills. [] Eyes: Denies change in visual acuity. [] HENT: Denies nasal congestion or sore throat. [] Respiratory: + cough or denies shortness of breath. [] Cardiovascular: Denies chest pain or edema. [] GI: Denies abdominal pain, nausea, vomiting, bloody stools or diarrhea. [] : Denies dysuria. [] Musculoskeletal: Denies back pain or joint pain. [] Integument: Denies rash. [] Neurologic: Denies headache, focal weakness or sensory changes. [] Endocrine: Denies polyuria or polydipsia. [] Lymphatic: Denies swollen glands. [] Psychiatric: Denies depression or anxiety. [] ([facility],MARINA M FURNITURE MECHANIC) Heart Score: C/O Chest Pain: No (BLAKE,MARINA M FURNITURE MECHANIC) Allergies: Allergies: Allergies Coded Allergies Type Severity Reaction Last Updated Verified No Known Drug Allergies 11/28/20 No (MARINA LOZANO M FURNITURE MECHANIC) Physical Exam: PE: Constitutional: Well developed, well nourished, no acute distress, non-toxic appearance. [] HENT: Normocephalic, atraumatic, bilateral external ears normal, oropharynx moist, no oral exudates, nose normal. [] Eyes: PERRLA, EOMI, conjunctiva normal, no discharge. [] Neck: Normal range of motion, no tenderness, supple, no stridor. [] Cardiovascular:Heart rate regular rhythm, no murmur [] Lungs & Thorax: Bilateral upper breath sounds clear and lower diminished to auscultation [] Abdomen: Bowel sounds normal, soft, no tenderness, no masses, no pulsatile masses. [] Skin: Warm, dry, no erythema, no rash. [] Back: No tenderness, no CVA tenderness. [] Extremities: No tenderness, no cyanosis, no clubbing, ROM intact, no edema. [] Neurologic: Alert and oriented X 3, normal motor function, normal sensory function, no focal deficits noted. [] Psychologic: Affect normal, judgement normal, mood normal. [] (MARINA LOZANO APRN) Current Patient Data: Vital Signs: Vital Signs Date Time Temp Pulse Resp B/P (MAP) Pulse Ox O2 Delivery O2 Flow Rate FiO2 05/24/21 14:48 97.9 63 16 169/86 (113) 100 Room Air 97.9 (MARINA LOZANO APRN) EKG: EKG: [] (MARINA LOZANO APRN) Radiology/Procedures: Radiology/Procedures: [] Impression: [facility] [address] [place] [address] IMAGING REPORT Signed PATIENT: YASEMIN LEBLANC ACCOUNT: [id number] : 1975 LOCATION: ER AGE: 45 SEX: F EXAM STATUS: PRE ER ORD. PHYSICIAN: MARINA LOZANO APRN REASON: cough, covid + PROCEDURE: PORTABLE CHEST 1V AP chest. HISTORY: Cough, Covid positive AP view was taken of the chest. Heart is normal in size. Patient's taken a poor inspiration. There is minimal atelectasis or infiltrate at the left costophrenic angle. No other infiltrates are noted. There is no effusion. IMPRESSION: 1. Poor inspiration with minimal left base atelectasis or infiltrate. Electronically signed by: King Moctezuma MD (05/24/2021 3:11 PM) [facility] DICTATED and SIGNED BY: KING MOCTEZUMA MD DATE: 05/24/21 [id number] (MARINA LOZANO APRN) Course & Med Decision Making: Course & Med Decision Making Pertinent Labs and Imaging studies reviewed. (See chart for details) see HPI. Alert and oriented x4. Ambulatory steady gait. Speaks in full clear sentences. Vital signs within normal limits. Skin pink warm and dry. Lungs are clear in upper lobes and diminished in lower lobes. Patient will be given a dose of dexamethasone in the ED. I will send her home with an inhaler and Z- Chon. [] (MARINA LOZANO APRN) Dragon Disclaimer: Dragon Disclaimer: This electronic medical record was generated, in whole or in part, using a voice recognition dictation system. (MARINA LOZANO APRN) Departure Departure Impression: Primary Impression: COVID-19 Additional Impression: Pneumonia Qualified Codes: J18.9 - Pneumonia, unspecified organism Disposition: HOME / SELF CARE / HOMELESS Condition: STABLE Referrals: MARÍA KATE MD (PCP) Patient Instructions: Incentive Spirometer, Pneumonia, Adult Additional Instructions: Drink plenty fluids. Follow-up with your primary care provider. If you get having severe shortness of breath, chest pain you cannot keep down fluids return to the emergency room. Take medication as prescribed and with food. Scripts Albuterol Sulfate (PROAIR HFA INHALER) 8.5 Gm Hfa.aer.ad 1 PUFF INH PRN Q6HRS PRN for SHORTNESS OF BREATH, #1 EACH 0 Refills Prov: MARINA LOZANO APRN 05/24/21 Azithromycin (AZITHROMYCIN TABLET) 250 Mg Tablet 1 PKG PO UD for 5 Days, #6 TAB 0 Refills 2 the first day followed by 1 for days 2-5 Prov: MARINA LOZANO APRN 05/24/21 Attending Signature Attending Signature I have reviewed the PA/TECHNICAL PROPOSAL WRITER's note and plan of care. I was available for consultation as needed during the patient's visit in the emergency department. I agree with the clinical impression, plan, and disposition. (ROXANA CHARLTON DO) MARINA LOZANO APRN May 24, 2021 15:45 ROXANA CHARLTON DO May 25, 2021 06:50
[2021-05-24] MEDS ORDERED: DEXAMETHASONE 4 MG TABLET PO ONE (16:15)
== END 2021-05-24 16:08 | disposition home or self-care (01) ==
LOC: ER 14:16
DX: U07.1 COVID-19 (principal); J18.9 Pneumonia, unspecified organism; E11.9 Type 2 diabetes mellitus without complications; E78.00 Pure hypercholesterolemia, unspecified; F17.200 Nicotine dependence, unspecified, uncomplicated
CPT/HCPCS: 71045; 99283

== ENCOUNTER 2021-07-27 15:09 | Emergency (ER) | payer SELFPAY ==
[~2021-07-27] VITALS: Ht 157.5 cm; Wt 117.1 kg
[~2021-07-27 15:09] MED LIST changes: +ALBU2.5V8 INH; +AZIT250T6 PO
--- NOTE | 2021-07-27 16:37 | PHYS DOC ---
Past Medical History Past Medical History: Anxiety, Depression, Diabetes-Type II, Gallstones, High Cholesterol, Other Additional Past Medical Histor: OBESE, vertigo (TEE MASTERSON) Past Surgical History: , Other Additional Past Surgical Histo: gallstone laser removal (TEE MASTERSON) Smoking Status: Current Every Day Smoker Alcohol Use: None Drug Use: None (TEE MASTERSON) General Adult EDM: Chief Complaint: GI PROBLEM HPI: HPI: Patient is a 45 year old female who presents with difficulty swallowing for the past month. Patient reports she has a bolus sensation in her throat constantly x1 month, which has made it difficult to swallow food. She states that most foods, she eventually can swallow with difficulty. Foods like plantains, she is unable to swallow at all. She denies any pain. Patient denies history of goiter or other thyroid masses. She also denies fever, chills, nausea, vomiting, constipation, diarrhea. (TEE MASTERSON) Review of Systems: Review of Systems: Constitutional: See HPI Eyes: Denies change in visual acuity, eye pain or visual field deficits. HENT: See HPI Respiratory: Denies cough or shortness of breath. Cardiovascular: Denies chest pain or edema. GI: See HPI : Denies dysuria or hematuria. Musculoskeletal: Denies back pain or joint pain. Neurologic: Denies headache, focal weakness or sensory changes. (TEE MASTERSON) Heart Score: C/O Chest Pain: No (TEE MASTERSON) Allergies: Allergies: Allergies Coded Allergies Type Severity Reaction Last Updated Verified No Known Drug Allergies 11/28/20 No (TEE MASTERSON) Physical Exam: PE: Constitutional: Obese, no acute distress, non-toxic appearance. Eyes: PERRLA, EOMI, conjunctiva normal, no discharge. HENT: Normocephalic, atraumatic, bilateral external ears without deformity or discharge, oropharynx moist, no oral exudates, patient tolerating secretions, nose without deformity or discharge. Neck: Normal range of motion, no tenderness, supple, trachea midline, no palpable masses, no stridor. Cardiovascular: Heart rate regular rhythm, no murmur. Lungs & Thorax: Bilateral breath sounds clear to auscultation. Abdomen: Bowel sounds normal, soft, no tenderness, no masses, no pulsatile masses. Skin: Warm, dry, no erythema, no rash. (TEE MASTERSON) Current Patient Data: Vital Signs: Vital Signs Date Time Temp Pulse Resp B/P (MAP) Pulse Ox O2 Delivery O2 Flow Rate FiO2 07/27/21 15:41 97.7 64 15 133/68 (89) 100 Room Air 97.7 (TEE MASTERSON) Radiology/Procedures: Radiology/Procedures: PROCEDURE: CT SOFT TISSUE NECK W/CONTRAST CLINICAL HISTORY: dysphagia x1 month, OMNI 300 INJ. 70 MLS COMPARISON: None available. TECHNIQUE: CT of the neck was performed following the administration of IV contrast. Axial, coronal and sagittal reformatted images were generated. PQRS compliance statement - One or more of the following individualized dose reduction techniques were utilized for this study: 1. Automated exposure control 2. Adjustment of the mA and/or kV according to patient size 3. Use of iterative reconstruction technique FINDINGS: Images through the skull base and cavernous sinuses are unremarkable. The orbits are unremarkable. The paranasal sinuses and mastoid air cells are unremarkable. The nasopharynx, oral pharynx and oral cavity including the floor of the mouth and tongue are unremarkable. The hypopharynx including the epiglottis, vallecula and pyriform sinuses are unremarkable. Prominence of the tonsils bilaterally. The larynx, vocal cords and subglottic airways are unremarkable/patent. The parotid and submandibular glands are unremarkable. The thyroid gland is unremarkable. The carotid arteries and jugular veins are patent. Retroesophageal course of the right subclavian artery. There is no evidence of pathologically enlarged lymph nodes. The osseous structures are unremarkable. Limited evaluation of the upper chest reveals no evidence of pulmonary parenchymal abnormality. IMPRESSION: Prominence of the tonsils bilaterally. No discrete loculated fluid collection is seen. Electronically signed by: Bandar Garcia MD (07/27/2021 6:15 PM) [facility] (TEE MASTERSON) Course & Med Decision Making: Course & Med Decision Making Pertinent Labs and Imaging studies reviewed. (See chart for details) Patient is a 45-year-old female who presents with dysphagia that has been consistent and unchanged for the past month. She can tolerate her own secretions and liquids. She does have some trouble swallowing thicker solid foods. Work-up today will include basic lab work as well as CT soft tissue neck with contrast. Lab work and imaging is reassuring. Patient will be provided with contact information for work from home for follow-up evaluation and treatment. Patient understands and is agreeable to discharge plan. (TEE MASTERSON) Dragon Disclaimer: Lilian Disclaimer: This electronic medical record was generated, in whole or in part, using a voice recognition dictation system. (TEE MASTERSON) Departure Departure Impression: Primary Impression: Dysphagia, pharyngeal Disposition: HOME / SELF CARE / HOMELESS Condition: STABLE Referrals: MARÍA KATE MD (PCP) PATSY CEJA MD Patient Instructions: Dysphagia Additional Instructions: Please return to the emergency department if your symptoms worsen or you develop new symptoms. Contact information is provided above for a work from home, who can provide further evaluation and management of your symptoms. Attending Signature Attending Signature I have reviewed the PA/SERVICER COIN MACHINES's note and plan of care. I was available for consultation as needed during the patient's visit in the emergency department. I agree with the clinical impression, plan, and disposition. (ROXANA CHARLTON DO) TEE MASTERSON Jul 27, 2021 16:37 ROXANA CHARLTON DO Jul 28, 2021 00:05
[2021-07-27 17:15] LABS: BASO % 0 % (0-3); EOS # 0.2 x10^3/uL (0.0-0.7); EOS % 2 % (0-3); HEMATOCRIT 39.4 % (36.0-47.0); HEMOGLOBIN 13.1 g/dL (12.0-15.5); LYMPH # 2.3 x10^3/uL (1.0-4.8); LYMPH % 23 % (24-48); MEAN CORPUSCULAR HEMOGLOBIN 29 pg (25-35); MEAN CORPUSCULAR HGB CONC 33 g/dL (31-37); MEAN CORPUSCULAR VOLUME 85 fL (79-100); MONO # 0.5 x10^3/uL (0.0-1.1); MONO % 5 % (0-9); NEUT % 70 % (31-73); PLATELET COUNT 287 x10^3/uL (140-400); RED BLOOD COUNT 4.61 x10^6/uL (3.50-5.40); RED CELL DISTRIBUTION WIDTH 14.3 % (11.5-14.5)
[2021-07-27] MEDS ORDERED: CONTRAST GIVEN. MC PRN (17:15)
[2021-07-27 17:25] LABS: CREATININE 0.6 mg/dL (0.6-1.0); GFR 107.2; POTASSIUM 4.1 mmol/L (3.5-5.1)
[2021-07-27] MEDS ORDERED: IOHEXOL 300 MG/ML 100ML VIAL. IV ONE (17:30)
[2021-07-27 17:32] LABS: ALBUMIN 3.6 g/dL (3.4-5.0); ALBUMIN/GLOBULIN RATIO 0.9 (1.0-1.7); TOTAL BILIRUBIN 0.6 mg/dL (0.2-1.0); TOTAL PROTEIN 7.6 g/dL (6.4-8.2)
--- NOTE | 2021-07-27 18:17 | RAD ---
CLINICAL HISTORY: dysphagia x1 month, OMNI 300 INJ. 70 MLS COMPARISON: None available. TECHNIQUE: CT of the neck was performed following the administration of IV contrast. Axial, coronal a nd sagittal reformatted images were generated. PQRS compliance statement - One or more of the following individualized dose reduction techniques wer e utilized for this study: 1. Automated exposure control 2. Adjustment of the mA and/or kV according to patient size 3. Use of iterative reconstruction technique FINDINGS: Images through the skull base and cavernous sinuses are unremarkable. The orbits are unremarkable. Th e paranasal sinuses and mastoid air cells are unremarkable. The nasopharynx, oral pharynx and oral cavity including the floor of the mouth and tongue are unrema rkable. The hypopharynx including the epiglottis, vallecula and pyriform sinuses are unremarkable. Prominenc e of the tonsils bilaterally. The larynx, vocal cords and subglottic airways are unremarkable/patent. The parotid and submandibular glands are unremarkable. The thyroid gland is unremarkable. The carotid arteries and jugular veins are patent. Retroesophageal course of the right subclavian art adonay. There is no evidence of pathologically enlarged lymph nodes. The osseous structures are unremarkable. Limited evaluation of the upper chest reveals no evidence of pulmonary parenchymal abnormality. IMPRESSION: Prominence of the tonsils bilaterally. No discrete loculated fluid collection is seen. Electronically signed by: Bandar Garcia MD (07/27/2021 6:15 PM) [facility]
[2021-07-27 18:28] VITALS: BP 122/63
== END 2021-07-27 18:50 | disposition home or self-care (01) ==
LOC: ER 15:09
DX: R13.13 Dysphagia, pharyngeal phase (principal); F41.9 Anxiety disorder, unspecified; F32.9 Major depressive disorder, single episode, unspecified; E11.9 Type 2 diabetes mellitus without complications; E78.00 Pure hypercholesterolemia, unspecified; F17.200 Nicotine dependence, unspecified, uncomplicated; E66.9 Obesity, unspecified; Z68.42 Body mass index [BMI] 45.0-49.9, adult
CPT/HCPCS: 36415; 70491; 80053; 81025; 85025; 99285; Q9967